=== PATIENT | male | born 1965 ===

== ENCOUNTER 2020-11-02 22:14 | Inpatient (IN) | payer BC ==
[~2020-11-02] VITALS: Ht 182.9 cm; Wt 128.2 kg
[~2020-11-02 22:14] MED LIST: LISI5 PO; METF500 PO; NAPR375 PO
[2020-11-02 23:12] LABS: BASOPHILS ABSOLUTE AUTO 0.01 K/mm3 (0.00-0.23); BASOPHILS PERCENT AUTO 0 % (0-2); EOSINOPHILS PERCENT AUTO 0 % (0-6); Hematocrit 41.6 % (37.0-53.0); Hemoglobin 15.6 g/dL (13.5-17.5); IMMATURE GRAN ABSOLUTE AUTO 0.02 K/mm3 (0.00-0.10); IMMATURE GRAN PERCENT AUTO 0 % (0-1); LYMPHOCYTES ABSOLUTE AUTO 1.13 K/mm3 (0.84-5.20); LYMPHOCYTES PERCENT AUTO 20 % (21-46); MONOCYTES ABSOLUTE AUTO 0.35 K/mm3 (0.16-1.47); MONOCYTES PERCENT AUTO 6 % (4-13); Mean Corpuscular HGB 31.3 pg (26.0-34.0); Mean Corpuscular HGB Conc 37.5 g/dL (31.5-36.5); Mean Corpuscular Volume 84 fL (80-100); Mean Platelet Volume 12.4 fL (9.1-12.4); NEUTROPHILS ABSOLUTE AUTO 4.18 K/mm3 (1.96-9.15); NEUTROPHILS PERCENT AUTO 73 % (41-73); Platelet Count 110 K/mm3 (150-400); RDW Coefficient Variation 11.5 % (11.7-14.2); RDW Standard Deviation 34.7 fL (35.1-46.3); Red Blood Cell Count 4.98 M/mm3 (4.30-5.90); White Blood Cell Count 5.69 K/mm3 (4.00-11.30)
[2020-11-02 23:37] LABS: Alanine Aminotransfer (ALT/SGP 170 U/L (12-78); Albumin, Blood 3.2 g/dL (3.4-5.0); Albumin/Globulin Ratio 0.7 (0.8-1.8); Alk Phos 50 U/L (50-136); Anion Gap 9 mmol/L (6-16); Aspartate Aminotrans (AST/SGOT 117 U/L (12-37); Bilirubin, Total 0.7 mg/dL (0.1-1.0); Blood Urea Nitrogen 18 mg/dL (8-24); Bun/Creatinine Ratio 17.5 (12.0-20.0); CO2, Blood 24 mmol/L (21-32); Calcium, Blood 8.3 mg/dL (8.5-10.1); Chloride, Blood 86 mmol/L (98-108); Creatinine, Blood 1.03 mg/dL (0.60-1.20); Globulin, Blood 4.4 g/dL (2.2-4.0); Glomerular Filtration Rate >60 (60-); Glucose, Blood 291 mg/dL (70-99); Sodium, Blood 119 mmol/L (136-145); Total Protein, Blood 7.6 g/dL (6.4-8.2)
[2020-11-03 03:57] LABS: Anion Gap 11 mmol/L (6-16); Blood Urea Nitrogen 20 mg/dL (8-24); Bun/Creatinine Ratio 20.6 (12.0-20.0); CO2, Blood 21 mmol/L (21-32); Calcium, Blood 7.6 mg/dL (8.5-10.1); Chloride, Blood 89 mmol/L (98-108); Creatinine, Blood 0.97 mg/dL (0.60-1.20); Glomerular Filtration Rate >60 (60-); Glucose, Blood 278 mg/dL (70-99); Potassium, Blood 4.1 mmol/L (3.5-5.5); Sodium, Blood 121 mmol/L (136-145)
[2020-11-03] MEDS ORDERED: GABA300 PO (04:46)
[2020-11-03] MEDS ORDERED: PRAVASTATIN SOD40 MG PO (04:47)
[2020-11-03] MEDS ORDERED: GLIM2 PO (04:48)
[2020-11-03] MEDS ORDERED: BASAGLAR K100 UNIT/3 SC (04:51)
--- NOTE | 2020-11-03 06:59 | NUR ---
Rn summary: Patient is alert and oriented, slow to respond to questions, just doesnt feel well. Patient has fine scattered crackles, non productive cough. Pt is on RA at this time O2 sats > 90%. Heart tones regular, sl tachy. No skin breakdown noted. Pt is covid positive, droplet isolation in place. Pt oriented to room. Has gotten up x1 to BR.
[2020-11-03 08:10] LABS: Anion Gap 9 mmol/L (6-16); Blood Urea Nitrogen 18 mg/dL (8-24); Bun/Creatinine Ratio 18.5 (12.0-20.0); CO2, Blood 24 mmol/L (21-32); Calcium, Blood 7.9 mg/dL (8.5-10.1); Chloride, Blood 89 mmol/L (98-108); Creatinine, Blood 0.98 mg/dL (0.60-1.20); Glomerular Filtration Rate >60 (60-); Glucose, Blood 257 mg/dL (70-99); Potassium, Blood 3.9 mmol/L (3.5-5.5); Sodium, Blood 122 mmol/L (136-145)
[2020-11-03 13:01] LABS: Anion Gap 11 mmol/L (6-16); Blood Urea Nitrogen 18 mg/dL (8-24); Bun/Creatinine Ratio 21.7 (12.0-20.0); CO2, Blood 22 mmol/L (21-32); Calcium, Blood 8.2 mg/dL (8.5-10.1); Chloride, Blood 89 mmol/L (98-108); Creatinine, Blood 0.83 mg/dL (0.60-1.20); Glomerular Filtration Rate >60 (60-); Glucose, Blood 277 mg/dL (70-99); Potassium, Blood 3.8 mmol/L (3.5-5.5); Sodium, Blood 122 mmol/L (136-145)
--- NOTE | 2020-11-03 14:44 | NUR ---
ASSUMED CARE OF PT FROM PETER MARTÍNEZ RN AT THIS TIME.
--- NOTE | 2020-11-03 18:02 | NUR ---
SHIFT SUMMARY PT IN ISOLATION FOR COVID 19. A/O X4 AND IND BUT OVERALL DOES NOT FEEL WELL. BEEN RUNNING A SLIGHT FEVER BETWEEN 99-100. NO C/O OF PAIN AND IS ON ROOM AIR. SLOW TO RESPOND TO QUESTIONS AND SEEMS VERY FATIGUED. WILL REPORT TO ADY MARSHALL.
--- NOTE | 2020-11-04 04:56 | NUR ---
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 FEBRILE AT START OF SHIFT, MEDICATED WITH TYLENOL WITH LITTLE EFFECT. RECIEVED ADDITIONAL ORDER FROM DR WEINER FOR IBUPROFEN WHICH BROUGHT TEMP DOWN TO 96.7. O2 SATS 90-92% ON RA. PT'S HAD BROUGHT IN HIS HOME CPAP HOWEVER PT DID NOT WANT TO USE IT. SAID HE HAD NOT BEEN USING IT MUCH SINCE HE GOT SICK. WILL CONTINUE TO MONITOR.
[2020-11-04 08:10] LABS: Anion Gap 7 mmol/L (6-16); Blood Urea Nitrogen 19 mg/dL (8-24); CO2, Blood 25 mmol/L (21-32); Calcium, Blood 8.8 mg/dL (8.5-10.1); Chloride, Blood 93 mmol/L (98-108); Creatinine, Blood 0.91 mg/dL (0.60-1.20); Glomerular Filtration Rate >60 (60-); Glucose, Blood 268 mg/dL (70-99); Potassium, Blood 3.9 mmol/L (3.5-5.5); Sodium, Blood 125 mmol/L (136-145)
[2020-11-04] MEDS ORDERED: ELIQUIS2.5 MG PO (17:08)
--- NOTE | 2020-11-04 18:01 | NUR ---
SHIFT SUMMARY NO ACUTE CHANGES T/O SHIFT, A&O, FLAT EFFECT, VSS, INDEPENDENT IN ROOM. REMAINS ON RA c O2 SATS WNL. 1 BAG OF NS INFUSED THIS SHIFT, SODIUM LEVELS MOVING IN RIGHT DIRECTION. PT IS TO BE DISCHARGED THIS EVENING, WAITING ON RIDE FROM FAMILY MEMBER CURRENTLY. IV REMOVED AND SITE APPEARS WNL. PT IS CURRENTLY RESTING IN BED, CALL LIGHT WITHIN REACH. CALLS APPROPRIATELY.
--- NOTE | 2020-11-04 18:47 | NUR ---
DISCHARGE SUMMARY PT DISCHARGED @ [facility] 1830 VIA WHEELCHAIR BY RAJAT. DISCHARGE INSTRUCTIONS REVIEWED c PT, NEEDED RX FAXED TO PHARMACY. PT STATED THEY HAD ALL OF THEIR BELONGINGS. IV REMOVED AND SITE APPEARED WNL.
== END 2020-11-04 18:31 | disposition home or self-care (01) | DRG 640 ==
LOC: ER 22:14 → MEDS 22:15 → ERHOLD 22:15 → MEDS 11-03 04:30
PROVIDERS: Family Medicine; Internal Medicine; Student in an Organized Health Care Education/Training Program; ADMIT Family Medicine
PROC: 8E0ZXY6 Isolation (ICD-10-PCS; principal; 2020-11-04)
DX: E87.1 Hypo-osmolality and hyponatremia (principal); U07.1 COVID-19; E11.65 Type 2 diabetes mellitus with hyperglycemia; I10 Essential (primary) hypertension; Z79.84 Long term (current) use of oral hypoglycemic drugs; Z79.899 Other long term (current) drug therapy
CPT/HCPCS: 36415; 71045; 80048; 80053; 82947; 83036; 83935; 84295; 84300; 85025; 85379; 96372; 96374; 99285; A9270; G0378; J1650; J2405; J7030